=== PATIENT | female | born 1960 | race Caucasian/White ===

== ENCOUNTER 2022-04-05 15:24 | Emergency (ER) | payer OTHER ==
[~2022-04-05] VITALS: Ht 157.5 cm; Wt 73.0 kg
[2022-04-05 15:29] VITALS: BP 131/81
[2022-04-05] MEDS ORDERED: KETOROLAC 30 MG/ML VIAL IM ONE ×2 (17:20→21:40)
[2022-04-05] MEDS ORDERED: GABA300C PO (17:48)
[2022-04-05] MEDS ORDERED: IBUP-2213 PO (17:48)
[2022-04-05] MEDS ORDERED: KETOROLAC 30 MG/ML VIAL ONE (21:32)
[2022-04-05 21:35] VITALS: BP 131/81
--- NOTE | 2022-04-05 21:35 | NUR ---
Patient discharged with v/s stable. Written and verbal after care instructions given and explained. Patient alert, oriented and verbalized understanding of instructions. Ambulatory with steady gait. All questions addressed prior to discharge. ID band removed. Patient advised to follow up with PMD. Rx of GAPAPENTIN, IBUPROFEN given. Patient educated on indication of medication including possible reaction and side effects. Opportunity to ask questions provided and answered.
== END 2022-04-05 21:35 | disposition home or self-care (01) ==
LOC: MED 15:24
DX: M79.2 Neuralgia and neuritis, unspecified (principal); F17.210 Nicotine dependence, cigarettes, uncomplicated; Z72.89 Other problems related to lifestyle
CPT/HCPCS: 96372; 99283; J1885